=== PATIENT | female | born 1975 | race Caucasian/White ===

== ENCOUNTER → 2016-07-06 | Outpatient (CLI) | payer BC | LOC: CIMAGING 12:06 | DX: M25.562 Pain in left knee (principal); Z12.31 Encounter for screening mammogram for malignant neoplasm of breast | CPT/HCPCS: 73562-PO; G0202 ==

== ENCOUNTER → 2017-01-03 | Outpatient (CLI) | payer BC | LOC: CIMAGING 12:21 | PROVIDERS: ATTEND Family Medicine | DX: M25.561 Pain in right knee (principal); W19.XXXA Unspecified fall, initial encounter | CPT/HCPCS: 73564-PO ==

== ENCOUNTER 2018-09-06 09:38 | Emergency (ER) | payer OTHER ==
--- NOTE | 2018-09-06 10:06 | EDPHY ---
H & P Time Seen by Provider: 09/06/18 09:46 HPI/ROS: CHIEF COMPLAINT: Multiple complaints HISTORY OF PRESENT ILLNESS: The patient is a 43 female with a history of migraine headache and anxiety who presents to the emergency department with multiple complaints. The patient states that she has had migraines for the past 21 years. She gets them recurrently. She is followed by Dr. Van from Neurology. She has been getting Botox injections since 2016 and this has improved her symptoms. She has an appointment this afternoon with Dr. Van for further treatment. She states that she has her typical migraine type symptoms. Patient also developed chest pain, cough, fever and body aches. The symptoms have been going on for 5-6 days. She does not have an actual measurement of temperature at home. Her cough is nonproductive. She describes diffuse chest pain. It is not pleuritic. It is not worse with movement. Patient denies abdominal pain. No nausea or vomiting. REVIEW OF SYSTEMS: 10 systems were reveiwed and are negative with the exception of the elements mentioned in the history of present illness. Past Medical/Surgical History: Includes traumatic brain injury, migraines, anxiety Social history: Patient does not smoke Smoking Status: Never smoked Physical Exam: Vitals noted GENERAL: No acute distress, anxious appearing, taking deep breaths, alert. HEENT: Eyes normal to inspection, normal pharynx, no signs of dehydration. NECK: Normal, supple. RESPIRATORY: Clear to auscultation bilaterally, no rales, rhonchi or wheezing. Normal CVS: Regular rate and rhythm, no rubs, murmurs, or gallops. ABDOMEN: Soft, nontender, nondistended, no organomegaly. BACK: Normal to inspection, no CVA tenderness. SKIN: Normal color, no rash, warm, dry. No pallor. EXTREMITIES: No pedal edema, no calf tenderness, no Homans sign or cords, no joint swelling. NEURO/PSYCH: Alert and oriented, normal mood and affect, normal motor sensory exam. No obvious cranial nerve deficit. Constitutional: Initial Vital Signs Temperature (C) 36.7 C 09/06/18 09:49 Heart Rate 92 09/06/18 09:49 Respiratory Rate 20 09/06/18 09:49 Blood Pressure 109/78 09/06/18 09:49 O2 Sat (%) 96 09/06/18 09:49 O2 Delivery Mode Room Air Allergies/Adverse Reactions: morphine Allergy (Mild, Verified 09/06/18 09:47) NAUSEA Home Medications: Medication Instructions Recorded Benadryl Allergy 09/03/10 Botox 09/06/18 Gabapentin 09/06/18 Medical Decision Making - Diagnostics Imaging Results: Imaging Impressions Chest X-Ray 09/06/18 10:08 Impression: Mild peribronchial thickening which can be seen with airways disease /bronchitis. ED Course/Re-evaluation: In the emergency department I discussed possible etiologies with the patient. Answered all her questions. An IV was placed. Patient was given Ativan 1 mg IV. I discussed this with the patient she requested medication for anxiety. Chest x-ray, EKG and laboratory studies were ordered. EKG shows normal sinus rhythm, normal rate, normal axis, normal intervals. There are no ST or T-wave abnormalities. EKG is normal as interpreted by me. Patient's troponin was negative. CBC chemistry unremarkable. is negative. The patient's D-dimer is elevated at 1520 I rechecked the patient. She was sleepy after receiving Ativan but stated that her headache had improved. She had no focal deficits. I discussed the results with the patient. I answered all her questions. Due to the elevated D-dimer and shortness of breath a CT angiogram was ordered. CT angiogram chest: Please refer the dictated report. There is no visible pulmonary embolus. Patient has bronchitis type changes. The patient also has enlarged thyroid gland. This will need outpatient follow-up. I discussed the results with the patient. I answered all her questions. At this time I do not feel she needs antibiotics for shortness of breath. Her exam is normal. Chest clear breath sounds bilateral with no respiratory distress. On recheck she was not short of breath. Her symptoms seem to improve after receiving Ativan. I discussed the abnormal CT findings and the need for close follow-up with primary care physician. She was given follow-up with on-call primary care physician and told that she need to call to make an appointment. She will keep appointment today with Dr. Van. Differential Diagnosis: My differential includes but is not limited to bronchitis, pneumonia, bacteremia , sepsis, ACS, acute PR, dissection, aneurysm, pericarditis, myocarditis, GERD, migraine, anxiety, subarachnoid hemorrhage, subdural hematoma - Data Points Laboratory Results: 09/06/18 09/06/18 10:43 10:18 POC Sodium 137 mEq/L mEq/L (135-145) POC Potassium 3.3 mEq/L mEq/L (3.3-5.0) POC Chloride 105.0 mEq/L mEq/L (97-110) POC Total CO2 25 mEq/L mEq/L (22-31) POC BUN 8 mg/dL mg/dL (7-23) POC Creatinine 1.0 mg/dL mg/dL (0.6-1.0) POC Glucose 112 mg/dL H mg/dL (70-100) POC Calcium 9.5 mg/dL mg/dL (8.5-10.4) POC Troponin I 0.08 ng/mL ng/mL (0.00-0.08) Medications Given: Discontinued Medications Lorazepam (Ativan Injection) 1 mg IVP EDNOW ONE Stop: 09/06/18 10:10 Last Admin: 09/06/18 10:11 Dose: 1 mg Point of Care Test Results: CBC CBC Collection Date 09/06/18 CBC Collection Time 10:12 WBC 6.94 RBC 5.04 HGB 15.8 HCT 45 PLT 195 Neut # 5.29 Neut 76.4 LYMPH # 1.19 LYMPH 17.1 MCV 89.3 Chemistry 09/06/18 09/06/18 10:43 10:18 POC Sodium 137 mEq/L mEq/L (135-145) POC Potassium 3.3 mEq/L mEq/L (3.3-5.0) POC Chloride 105.0 mEq/L mEq/L (97-110) POC Total CO2 25 mEq/L mEq/L (22-31) POC BUN 8 mg/dL mg/dL (7-23) POC Creatinine 1.0 mg/dL mg/dL (0.6-1.0) POC Glucose 112 mg/dL H mg/dL (70-100) POC Calcium 9.5 mg/dL mg/dL (8.5-10.4) POC Troponin I 0.08 ng/mL ng/mL (0.00-0.08) Basic Metabolic Panel BMP Collection Date 09/06/18 BMP Collection Time 10:12 D-Dimer D-Dimer Collection Date 09/06/18 D-Dimer Collection Time 10:12 D-Dimer (ng/ml) 1520 Urine Collection Date 09/06/18 Collection Time 10:10 HCG Results Negative Departure - Departure Disposition: Home, Routine, Self-Care Clinical Impression: Anxiety Chest pain Qualifiers: Chest pain type: unspecified Qualified Code(s): R07.9 - Chest pain, unspecified Dyspnea Qualifiers: Dyspnea type: unspecified Qualified Code(s): R06.00 - Dyspnea, unspecified Condition: Good Instructions: Chest Pain (ED), Anxiety (ED), Shortness of Breath (ED) Additional Instructions: In the emergency department here laboratory studies were unremarkable except for an elevated D-dimer. Because of this you had a CT angiogram of your chest. This did not show any significant pulmonary disease. You were noted to have enlarged thyroid gland. This will need outpatient follow-up you been given contact information for the on-call physician. If you already have a primary care physician, they can follow up on the test results. Referrals: Nhan Vaughan DO [Medical Doctor] - 09/06/18 10:08 am Pasha Worthington MD [Medical Doctor] - 5-7 days, call for appt.
[2018-09-06] MEDS ORDERED: LORazepam 2 MG/ML INJ ONE (10:09)
[2018-09-06] MEDS ORDERED: LORazepam 2 MG/ML INJ IVP ONE (10:09)
[2018-09-06] MEDS ORDERED: IOPAMIDOL (ISOVUE 370) 100 ML BTL IV ONE (11:24)
[2018-09-06 13:21] VITALS: BP 104/79
--- NOTE | 2018-09-06 14:05 | CPEKG ---
Test Reason : OPEN Blood Pressure : / mmHG Vent. Rate : 096 BPM Atrial Rate : 096 BPM P-R Int : 133 ms QRS Dur : 076 ms QT Int : 356 ms P-R-T Axes : 037 029 060 degrees QTc Int : 450 ms Sinus rhythm Confirmed by Arely Mccauley ([id number]) on 09/06/2018 2:05:09 PM Referred By: Arely Mccauley Confirmed By:Arely Mccauley
== END 2018-09-06 12:46 | disposition home or self-care (01) ==
LOC: CED 09:38
DX: R07.9 Chest pain, unspecified (principal); R06.00 Dyspnea, unspecified; G43.909 Migraine, unspecified, not intractable, without status migrainosus
CPT/HCPCS: 71046-PO; 71275-PO; 80048-ER; 81025-ER; 84484-ER; 85025-QW-ER; 85379-QW-ER; 96374-ER; 99285-ER; J2060; Q9967

== ENCOUNTER → 2018-09-18 | Outpatient (CLI) | payer OTHER | LOC: CIMAGING 10:35 | PROVIDERS: ATTEND Family Medicine | DX: E04.1 Nontoxic single thyroid nodule (principal) | CPT/HCPCS: 76536-PO ==

== ENCOUNTER → 2018-09-24 | Outpatient (CLI) | payer OTHER ==
[~2018-09-24] MED LIST: LIDOCAINE 1% 300 MG/30 ML SDV ONE
== END ==
LOC: FIMAGING 08:07
PROVIDERS: ATTEND Family Medicine
PROC: 0G9K3ZX Drainage of Thyroid Gland, Percutaneous Approach, Diagnostic (ICD-10-PCS; principal; 2018-09-24)
DX: E04.1 Nontoxic single thyroid nodule (principal)